=== PATIENT | female | born 1950 | race Caucasian/White ===

== ENCOUNTER 2025-10-05 14:18 | Emergency (ER) | payer OTHER ==
[~2025-10-05] VITALS: Ht 149.8 cm; Wt 77.1 kg
[2025-10-05] MEDS ORDERED: ULTRACET 325 MG1 TA1 PO (17:04)
[2025-10-05] MEDS ORDERED: FLUOXETINE HYDR20 M1 PO (17:05)
[2025-10-05] MEDS ORDERED: FAMOTIDINE40 MG PO (17:05)
[2025-10-05] MEDS ORDERED: FUROSEMIDE20 M1 PO (17:05)
[2025-10-05] MEDS ORDERED: GLIPIZIDE10 M2 PO (17:05)
[2025-10-05] MEDS ORDERED: LOSARTAN POTASS25 M1 PO (17:06)
[2025-10-05] MEDS ORDERED: AMLODIPINE BES2.5 MG PO (17:06)
[2025-10-05] MEDS ORDERED: SODIUM BICARBO650 MG PO (17:07)
[2025-10-05] MEDS ORDERED: CARVEDILOL25 MG PO (17:07)
[2025-10-05] MEDS ORDERED: ATORVASTATIN CA20 M1 PO (17:07)
[2025-10-05] MEDS ORDERED: ALLOPURINOL100 MG PO (17:08)
== END 2025-10-05 17:11 | disposition home or self-care (01) ==
LOC: ED 14:18
DX: M25.531 Pain in right wrist (principal); R22.31 Localized swelling, mass and lump, right upper limb; Z98.890 Other specified postprocedural states